=== PATIENT | male | born 1975 | race African-American/Black ===

== ENCOUNTER 2019-10-25 22:46 | Emergency (ER) | payer SELFPAY ==
[~2019-10-25] VITALS: Ht 172.7 cm; Wt 67.1 kg
[2019-10-25 22:52] VITALS: Ht 172.7 cm; Wt 67.1 kg
[2019-10-26 00:09] VITALS: BP 109/53
== END 2019-10-26 00:02 | disposition left against medical advice (07) ==
LOC: ED 22:46
DX: G43.909 Migraine, unspecified, not intractable, without status migrainosus (principal); Z88.6 Allergy status to analgesic agent
CPT/HCPCS: J1200; J2765